=== PATIENT | male | born 2005 | race Caucasian/White ===

== ENCOUNTER 2025-09-17 20:57 | Emergency (ER) | payer OTHER, SELFPAY ==
[2025-09-17 21:05] VITALS: BP 161/95
[2025-09-17 21:18] LABS: Hematocrit 44.1 % (39.0-52.0); Hemoglobin 14.5 g/dL (13.0-18.0); Mean Corp Hgb Conc. 32.9 g/dL (33.0-37.0); Mean Corpuscular Volume 84.5 fL (80.0-94.0); Nucleated Red Blood Cells % 0 % (-); Platelet Count 327 10^3/uL (130-400); Red Cell Dist. Width 12.5 % (11.5-14.5)
[2025-09-17 21:52] LABS: Troponin I < 0.012 ng/ml
[2025-09-17 21:59] LABS: ALT (SGPT) 50 U/L (0-50); AST (SGOT) 33 U/L (17-59); Albumin 5.0 g/dl (3.5-5.0); Alkaline Phosphatase 69 U/L (38-126); Blood Urea Nitrogen 8 mg/dl (9-20); Calcium 9.7 mg/dl (8.4-10.2); Carbon Dioxide 29 mmol/L (22-30); Chloride 101 mmol/L (98-107); Glucose 106 mg/dl (70-99); Potassium 3.9 mmol/L (3.5-5.1); Sodium 139 mmol/L (135-145); Total Protein 8.1 g/dl (6.3-8.2); eGFR > 60.00
[2025-09-17 22:26] VITALS: BP 154/94
[2025-09-17 23:00] VITALS: BP 151/77
--- NOTE | 2025-09-17 23:47 | ED.GENMED ---
History of Present Illness
<Mariano Rodgers MD, Resident - Last Filed: 09/18/25 00:17>
General
Chief Complaint: Chest Pain
Source: patient
Time Seen by Provider: 09/17/25 22:51
History of Present Illness
History of Present Illness:
Patient is a 20-year-old male with PMH of hypothyroidism, hyperlipidemia, ADHD, anxiety, depression, and OCD who presented to the [place] ED with 1 week of chest pain. Patient was seen at urgent care earlier today for the same complaint. Per
patient, evaluation at was unremarkable, and he was discharged with instructions to seek further treatment if the chest pain returns. The chest pain subsequently returned, prompting the patient to present to the [place] ED. The pain is
intermittent, nonexertional, nonpleuritic, and is located in the patient's anterior chest and upper extremities. The patient describes the pain as 'like a knife poking' him. The pain has occurred intermittently during a 5-10 minute period
approximately 1 time per day for the last week. No alleviating or aggravating factors. No associated symptoms. Denies shortness of breath, palpitations, syncope, diaphoresis, N/V/D, or headache.
Past History
<Mariano Rodgers MD, Resident - Last Filed: 09/18/25 00:17>
Past History
ED Past Medical History: Hypercholesterolemia, Hypothyroidism and Psychiatric (Anxiety, depression, ADHD, OCD)
Social History
Tobacco: Non-smoker
Alcohol: Occasional
Drug: Marijuana (Smokes marijuana daily for anxiety)
Employment: Employed
Family History
Family History: Hypertension and Early CAD (Grandparents with MIs in 50s)
Review of Systems
<Mariano Rodgers MD, Resident - Last Filed: 09/18/25 00:17>
Review of Systems
Constitutional: Denies fever, fatigue or chills
Respiratory: Denies trouble breathing
Cardiac: Reports chest pain and other (No LE swelling or pain); Denies diaphoresis, palpitations or syncope
ABD/GI: Denies abdominal pain, nausea, vomiting or diarrhea
Neurological: Denies headache, weakness or numbness
Phy Exam
<Mariano Rodgers MD, Resident - Last Filed: 09/18/25 00:17>
Physical Exam
Physical Exam:
General: NAD. Conversant.
CV: S1, S2 noted. No M/R/G. No LE edema, erythema, or TTP. Pulses 2+.
Pulm: CTAB. No wheezes or crackles. No pain with deep inspiration.
GI: SNT. ND.
Neuro: A&O x 3. No focal deficits. CN II through XII grossly intact.
Psych: Anxious.
Scores
<Mariano Rodgers MD, Resident - Last Filed: 09/18/25 00:17>
Heart Score for Chest Pain Patients
STEMI patient?: No
History: Slightly or Non-Suspicious
ECG: Normal
Age: </= 45 years
Risk Factors: 1 or 2 Risk Factors
Troponin: </= Normal Limit
Heart Score for Chest Pain Patients: 1
Heart Score Risk: 2.5% MACE over next 6 weeks
<Mariano Noble MD - Last Filed: 09/18/25 00:40>
Heart Score for Chest Pain Patients
Heart Score for Chest Pain Patients: 1
Heart Score Risk: 2.5% MACE over next 6 weeks
Course
<Mariano Rodgers MD, Resident - Last Filed: 09/18/25 00:17>
Orders/Labs/Results
Orders:
Orders
09/17/25 20:58
EKG [Electrocardiogram (*1)] Urgent
Reason for Study: Chest Pain
EKG- Treatment ONCE
09/17/25 21:09
Complete Blood Count/With Diff Urgent
Comprehensive Metabolic Panel Urgent
Troponin I Urgent
Abnormal Lab Results
09/17/25
21:09
MCHC 32.9 L g/dL
(33.0-37.0)
Absolute Monos (auto) 0.7 H 10^3/uL
(0.1-0.6)
BUN 8 L mg/dl
(9-20)
Glucose 106 H mg/dl
(70-99)
09/17/25 21:09
09/17/25 21:09
Vital Signs
Initial and Last Documented VS:
Initial Vital Signs
Temp Pulse Resp Pulse Ox
98.9 F 84 18 98
09/17/25 21:02 09/17/25 21:02 09/17/25 21:02 09/17/25 21:02
Last Documented Vital Signs
Temp Pulse Resp BP Pulse Ox
98.9 F 65 20 151/77 98
09/17/25 21:02 09/17/25 23:45 09/17/25 23:45 09/17/25 23:00 09/18/25 00:12
<Mariano Noble MD - Last Filed: 09/18/25 00:40>
Orders/Labs/Results
Orders:
Orders
09/17/25 20:58
EKG [Electrocardiogram (*1)] Urgent
Reason for Study: Chest Pain
EKG- Treatment ONCE
09/17/25 21:09
Complete Blood Count/With Diff Urgent
Comprehensive Metabolic Panel Urgent
Troponin I Urgent
Abnormal Lab Results
09/17/25
21:09
MCHC 32.9 L g/dL
(33.0-37.0)
Absolute Monos (auto) 0.7 H 10^3/uL
(0.1-0.6)
BUN 8 L mg/dl
(9-20)
Glucose 106 H mg/dl
(70-99)
09/17/25 21:09
09/17/25 21:09
Vital Signs
Initial and Last Documented VS:
Initial Vital Signs
Temp Pulse Resp Pulse Ox
98.9 F 84 18 98
09/17/25 21:02 09/17/25 21:02 09/17/25 21:02 09/17/25 21:02
Last Documented Vital Signs
Temp Pulse Resp BP Pulse Ox
98.9 F 65 20 151/77 98
09/17/25 21:02 09/17/25 23:45 09/17/25 23:45 09/17/25 23:00 09/18/25 00:12
<Mariano Rodgers MD, Resident - Last Filed: 09/18/25 00:17>
MDM/Problems Addressed
Differential Diagnosis Includes:
Atypical chest pain
Anxiety
Pulmonary embolism
Myocardial infarction
Costochondritis
Pneumothorax
Neuropathy
MDM/Problems Addressed:
Assessment: Patient is a 20-year-old male with PMH of hyperlipidemia, hypothyroidism, and anxiety who presented to the [place] ED with 1 week of intermittent, nonexertional, nonpleuritic chest and upper extremity pain described as a 'poking
knife'. In the ED, patient is asymptomatic, EKG showed NSR with an incomplete RBBB, and physical exam and labs are unremarkable, including negative troponin. Additionally, CXR completed at urgent care today was reviewed in the ED, with no
pneumothorax or other abnormality identified. Suspect atypical chest pain that is unrelated to cardiac or pulmonary pathology.
Plan:
#Atypical chest pain
#Hypertension
-Diagnostic
BP 161/95, vitals otherwise unremarkable
CBC, CMP unremarkable
EKG: NSR. Incomplete RBBB.
Troponin <0.012
-Therapeutic
Patient reassured that his chest pain is unlikely to be related to cardiac or pulmonary pathology
Patient encouraged to follow-up with PCP at upcoming appointment in early September
<Mariano Rodgers MD, Resident - Last Filed: 09/18/25 00:17>
*Pulse Oximetry
SaO2: 98
Oxygen Mode of Delivery: Room air
Patient hypoxic: no
*Critical Care Note
Total Time (30-74mins, 75-104mins- exclusive of procedures): Not Applicable
ED Attending Note
<Mariano Rodgers MD, Resident - Last Filed: 09/18/25 00:17>
-
Portions of this chart may have been created with voice recognition software.� Occasional wrong word or��sound alike� substitutions may have occurred due to the inherent limitations of voice recognition software.
<Mariano Noble MD - Last Filed: 09/18/25 00:40>
ED Attending Note
Patient seen and examined by attending physician: Yes
I performed a history and physical exam of patient and discussed management with resident, I reviewed resident's note and agree with documented findings and plan of care.: Yes
ED Attending Note:
20-year-old male atypical sharp stabbing localized chest pain to the left upper chest and right upper chest intermittently for the last week. When this happens it would last seconds but go on for 5 or 10 minutes. No pleuritic pain no shortness of
breath no fever cough no back pain. No risk factors for CAD or for pulmonary emboli.
On exam patient is nontoxic in no distress. Lungs are clear and equal. Heart regular rate and rhythm no murmur. Abdomen is soft and nontender. Warm and dry. Perfusing well.
EKG shows an incomplete right bundle branch block. Lab stable. Chest x-ray from urgent care was reviewed and appears negative.
Very atypical chest pain. Highly doubt pulmonary emboli. Labs are stable. Reassurance discharged to follow-up with his primary physician
Discharge Plan
Departure
Patient Disposition: Home (Routine Discharge)
Date of Disposition: 09/17/25
Time of Disposition: 23:33
Patient with high blood pressure during this ER visit?: Yes
Condition: Good
Covid-19: Not Applicable
Discharge Problem:
Atypical chest pain
Instructions: Chest pain in adults - ED (DC), BLOOD PRESSURE
Referrals:
Wally Carrillo MD [Family Provider, [facility]]
Activity Restrictions/Additional Instructions:
Follow-up with PCP at scheduled visit in early September, or sooner if necessary
Return to ED if worsening chest pain, shortness of breath, fever, or other concerning symptoms develop
Interventions
Interventions:
*Risk Screen - Suicide Last Done: 09/17/25 21:02
*General Assessment Last Done: 09/17/25 21:02
*Neglect/Abuse Screening Last Done: 09/17/25 21:02
*ED- Fall Risk Assessment Last Done: 09/17/25 21:02
*ED COVID-19 Vaccine History Last Done: 09/17/25 21:02
*ED Influenza Vaccine History Last Done: 09/17/25 21:02
*Nursing Disposition Last Done: 09/17/25 23:56
ED- Cardiac Assessment Last Done: 09/17/25 23:56
Discharge Date and Time
Discharge Date/Time: 09/17/25 23:57
Print Language: CITIZEN [place]
== END 2025-09-17 23:57 | disposition home or self-care (01) ==
LOC: EMR 20:57
PROVIDERS: Emergency Medicine; EMERGENCY PHYSICIAN Emergency Medicine; FAMILY PHYSICIAN Family Medicine
DX: R07.89 Other chest pain (principal); I10 Essential (primary) hypertension; E03.9 Hypothyroidism, unspecified; E78.00 Pure hypercholesterolemia, unspecified; I45.10 Unspecified right bundle-branch block; F12.90 Cannabis use, unspecified, uncomplicated
CPT/HCPCS: 99284; 80053; 84484; 85025; 93005